=== PATIENT | female | born 1995 | race Caucasian/White ===

== ENCOUNTER 2020-07-10 13:07 | Inpatient (IN) | payer OTHER, SELFPAY ==
--- NOTE | ~2020-07-10 | US_ITS ---
EXAMINATION: US VENOUS ULTRASOUND WITH DOPPLER LOWER EXTREMITY, RIGHT CLINICAL INFORMATION: Right leg edema and pain COMPARISON: None TECHNIQUE: Ultrasound of the deep veins is performed from the hip to the calf with compression sonography and color and pulse Doppler assessment. Spectral analysis with color-flow imaging is performed. FINDINGS: There is normal venous compression and respiratory variation and augmented flow. The visualized common femoral vein, superficial femoral vein, profunda femoral vein, popliteal vein, and the trifurcation region shows no evidence of deep venous thrombosis. There is no significant popliteal fossa cyst. Some prominent right groin lymph nodes are seen the largest measuring 1.9 x 0.7 cm. Contralateral left common femoral vein appears normal. If the patient's symptoms persist, followup ultrasound in 5 days 7 days might be of value to exclude proximal propagation from a non-visualized calf vein. US/US venous duplex LE RT IMPRESSION: No DVT demonstrated in the right lower extremity.
--- NOTE | ~2020-07-10 | US_ITS ---
EXAMINATION: RIGHT KNEE. CLINICAL INFORMATION: Assess for fluid or abscess COMPARISON: None TECHNIQUE: Ultrasound of the right knee was performed FINDINGS: A joint effusion is present measuring 1.6 x 0.5 x 2.5 cm. No other abnormality is seen. US/US extremity nonvascular giron IMPRESSION: A knee joint effusion is present
--- NOTE | ~2020-07-10 | XR_ITS ---
EXAMINATION: XR KNEE, RIGHT CLINICAL INFORMATION: Right knee pain COMPARISON: None TECHNIQUE: Four views of the right knee. FINDINGS: Prepatellar soft tissue swelling/skin thickening is present. Bones and soft tissues are otherwise normal. No fracture or joint effusion. Alignment is anatomic. Joint spaces are well maintained. No abnormal soft tissue calcification. XR/XR knee RT 4V IMPRESSION: Swelling in prepatellar region. No bone or joint abnormality.
[2020-07-10 13:13] VITALS: BP 109/70; PULSE 90; O2SAT 98
[2020-07-10 13:29] VITALS: BP 116/63; PULSE 104; RESP 19; TEMP 39.2; O2SAT 98; BMI 19.4
[2020-07-10 15:49] LABS: MANUAL DIFF FLAG NO
[2020-07-10 15:57] LABS: Basophils Percent Auto 0.4 % (0-2); Eosinophils Absolute Auto 0.1 X10*3/uL (0.0-0.4); Eosinophils Percent Auto 0.7 % (0-4); Hemoglobin 13.1 g/dl (12.0-16.0); Imm Gran Abs Auto 0.02 X10*3/uL (0.00-0.03); Imm Gran Pct Auto 0.2 % (0.0-0.4); Lymphocytes Absolute Auto 1.2 X10*3/uL (1.2-4.9); Lymphocytes Percent Auto 12.4 % (20-40); Mean Corpuscular HGB Conc 32.8 g/dl (31.0-35.0); Mean Corpuscular Hemoglobin 29.8 pg (27.0-33.0); Mean Corpuscular Volume 90.9 fL (80-98); Mean Platelet Volume 9.8 fL (9.4-12.3); Monocytes Absolute Auto 0.5 X10*3/uL (0.1-1.2); Neutrophils Absolute Auto 7.8 X10*3/uL (2.0-8.3); Neutrophils Percent Auto 81.3 % (45-73); Platelet Count 157 X10*3/uL (160-400); Red Cell Distribution Width 13.8 % (11.0-16.0); White Blood Count 9.6 X10*3/uL (4.8-10.8)
[2020-07-10 16:17] LABS: Alanine Aminotransferase 207 U/L (0-31); Albumin Level 3.9 g/dL (3.5-5.0); Alkaline Phosphatase 84 U/L (39-117); Anion Gap 14 (12-20); Aspartate Amino Transferase 136 U/L (5-31); Bilirubin Total 0.7 mg/dL (0.0-1.0); Blood Urea Nitrogen 10 mg/dL (9-16); Calcium 8.6 mg/dL (8.4-10.2); Carbon Dioxide 26 mmol/L (22-29); Chloride 95 mmol/L (96-108); Creatinine Clr Calc Pharmacy 72.8; Estimated Glomerular Filt Rate > 60; Glucose Random 106 mg/dL (60-115); Potassium 3.9 mmol/L (3.3-5.1); Sodium 131 mmol/L (135-145)
[2020-07-10 17:29] VITALS: BP 131/74; PULSE 88; RESP 18; TEMP 37.9; O2SAT 97
--- NOTE | 2020-07-10 17:54 | ED.GENADULT ---
HPI - General Adult General Chief complaint: Skin/Abscess/Foreign Body Stated complaint: RIGHT KNEE PAIN,? INFECT, NO NEW INJURY Time Seen by Provider: 07/10/20 17:29 Source: patient Mode of arrival: ambulatory Limitations: no limitations History of Present Illness HPI narrative: 24 y/o female with history of daily IVDA (1 bundle per day, last use yesterday), history of infectious tenosynovitis w/ necrotic wounds on arms (went to OR w/ plastics & left [facility] in Dec 2019, did not complete abx) who presents to the ED with 2 days of severe non-traumatic right knee pain. She states her knee started to get red, hot and swollen about 2 days ago. She walked a mile on it last night and this morning she woke up and was unable to bend it at all. She has fever and chills at home. She is nauseated but has not vomited. No abdominal pain, chest pain, or SOB. MD complaint: right knee pain Onset (ago): day(s) (2) Location: right and lower extremity Radiation: non-radiation Severity: severe Severity scale (1-10): 10 Quality: stabbing and aching Pain Consistency: constant Relieving factors: immobilization and rest Exacerbating factors: movement Associated symptoms: malaise and nausea/vomiting Related Data Home Medications Medication Instructions Recorded Confirmed No Known Home Meds 07/10/20 07/10/20 Allergies Allergy/AdvReac Type Severity Reaction Status Date / Time No Known Allergies Allergy Verified 07/10/20 13:34 [No Known Allergies*] Review of Systems Review of Systems: Constitutional: + Fever, + Chills ENT/Mouth: No sore throat, No Rhinorrhea, No Swallowing Difficulty Eyes: No Eye Pain, No Swelling, No Redness Cardiovascular: No Chest Pain, No SOB, No Orthopnea, No Edema Respiratory: No Cough, No Sputum, No Wheezing, No dyspnea Gastrointestinal: + Nausea, No Vomiting, No Diarrhea, No abdominal Pain, No Hematochezia, No Melena Genitourinary: No Dysuria, No Urinary Frequency, No Hematuria Musculoskeletal: + joint pain, + Myalgias Skin: +Skin Lesions, No rash Neuro: No Weakness, No Numbness, No Dizziness, No Headache Psych: No Anxiety/Panic, + Depression, No SI Heme/Lymph: + Bruising, No Lymphadenopathy Endocrine: No Polyuria, No Polydipsia [facility] Past Medical History Attestation statement: The following information was validated with the patient. Medical History Infectious tenosynovitis IV drug user No known health problems Social History Social History Household Members: None Housing: Homeless Unable to assess alcohol history related to: Unknown Alcohol intake: never Smoking Status: Current every day smoker Tobacco Type: Cigarette Packs Per Day: 1 Cigarettes Per Day: 20.0 Smoked in Last 30 Days: Yes Use of substances other than those prescribed or required for medical reasons: Yes Substance Use Type: Crack/Cocaine, Heroin, IV Drugs and Marijuana Substance Use Frequency: Daily Last Used Substance: Days (ago) Currently Displaying Signs/Symptoms of Drug Intoxication Withdrawal: No Advance Directives: No Advance Directives Information Provided: Yes Do you have thoughts of harming others: None Do you have a plan to hurt others: No Plan Recently lost weight without trying: Unsure Nutrition Risks: No Nutritional Risk Patient : No : No Poor oral hygiene: No Physical Exam Vital Signs: Vital Signs: Last Vital Signs Temp 98.0 F 07/10/20 20:00 Pulse 70 07/10/20 20:00 Resp 18 07/10/20 20:00 BP 104/54 L 07/10/20 20:00 Pulse Ox 97 07/10/20 20:00 Body Mass Index 19.4 Appearance: Alert. Oriented X3. Appears to be in pain Eyes: Pupils equal, round and reactive to light. ENT: Pharynx normal. Neck: Normal inspection. Neck supple. CVS: Tachycardic, regular rhythm Pulses normal. No murmur appreaciated Respiratory: No respiratory distress. Breath sounds normal. Abdomen: Soft and nontender. +BS x4 Skin: Skin warm and dry. Normal skin color. Normal skin turgor. Multiple track foster on bilateral upper extremities, scabbing on LE Extremities: right knee with mild erythema, moderate warmth and significant tenderness. Unable to bend at all even passively due to pain. NV intact distally. No palpable effusion Neuro: Oriented X 3. No motor deficit. No sensory deficit. Course Course Course Narrative: 24 y/o female with history of active IVDA presenting with severe right knee pain with inability to bend along with fever, tachycardia. Concern for septic joint, bacteremia, and possible endocarditis. Anticipate admission, patient is agreeable. Basic labs done in the waiting room - on bedside assessment at 5:15pm there is suspicion for sepsis. IVF and broad spectrum abx ordered. Lactic and inflammatory markers ordered. Reevaluation(s) Reevaluation #1: No leukocytosis but CPR is 9.13. LFT's elevated without RUQ pain. Will check hepatitis panel. LE doppler showed no evidence of acute blood clot. Reevaluation #2: Spoke with Madison OROPEZA re: concern for septic joint, no other imaging recommended at this time. Ortho will evaluate the patient in the morning. Reevaluation #3: Spoke with Dr. Gray for admission - recommending joint U/S to assess for effusion. Order placed. Patient to be admitted. Consultations Consultation #1: Ortho - Madison Mckee Medical Decision Making Lab Data Result diagrams: 07/10/20 15:42 07/10/20 15:42 Labs: Lab Results 07/10/20 07/10/20 07/10/20 Range/Units 15:42 15:42 15:42 WBC 9.6 (4.8-10.8) X10*3/uL RBC 4.40 (4.20-5.50) X10*6/uL Hgb 13.1 (12.0-16.0) g/dl Hct 40.0 (37-47) % MCV 90.9 (80-98) fL MCH 29.8 (27.0-33.0) pg MCHC 32.8 (31.0-35.0) g/dl RDW 13.8 (11.0-16.0) % Plt Count 157 L (160-400) X10*3/uL MPV 9.8 (9.4-12.3) fL Immature Gran % (Auto) 0.2 (0.0-0.4) % Neut % (Auto) 81.3 H (45-73) % Lymph % (Auto) 12.4 L (20-40) % [place] % (Auto) 5.0 (2-11) % Eos % (Auto) 0.7 (0-4) % Baso % (Auto) 0.4 (0-2) % Lymph # (Auto) 1.2 (1.2-4.9) X10*3/uL [place] # (Auto) 0.5 (0.1-1.2) X10*3/uL Eos # (Auto) 0.1 (0.0-0.4) X10*3/uL Baso # (Auto) 0.0 (0.0-0.2) X10*3/uL Abs Immat Gran (auto) 0.02 (0.00-0.03) X10*3/uL Absolute Neuts (auto) 7.8 (2.0-8.3) X10*3/uL Absolute Nucleated RBC 0.000 (0.0-0.012) X10*3/uL Nucleated RBC % (auto) 0.0 (0.0-0.2) /100WBC ESR (0-20) MM/HR PT (10.8-13.0) SEC INR (0.9-1.1) APTT (24.1-38.0) SEC Sodium 131 L (135-145) mmol/L Potassium 3.9 (3.3-5.1) mmol/L Chloride 95 L (96-108) mmol/L Carbon Dioxide 26 (22-29) mmol/L Anion Gap 14 (12-20) BUN 10 (9-16) mg/dL Creatinine 0.99 (0.5-1.4) mg/dL Estim Creat Clear Calc 72.8 Estimated GFR > 60 Random Glucose 106 (60-115) mg/dL Lactic Acid 2.0 (0.5-2.0) mmol/L Calcium 8.6 (8.4-10.2) mg/dL Total Bilirubin 0.7 (0.0-1.0) mg/dL AST 136 H (5-31) U/L ALT 207 H (0-31) U/L Alkaline Phosphatase 84 (39-117) U/L C-Reactive Protein (< or = 0.50) mg/dL Total Protein 8.0 (6.5-8.0) g/dL Albumin 3.9 (3.5-5.0) g/dL COVID-19 (FUNMI) (Negative) COVID-19 Clin Com 07/10/20 07/10/20 07/10/20 Range/Units 15:42 19:06 19:06 WBC (4.8-10.8) X10*3/uL RBC (4.20-5.50) X10*6/uL Hgb (12.0-16.0) g/dl Hct (37-47) % MCV (80-98) fL MCH (27.0-33.0) pg MCHC (31.0-35.0) g/dl RDW (11.0-16.0) % Plt Count (160-400) X10*3/uL MPV (9.4-12.3) fL Immature Gran % (Auto) (0.0-0.4) % Neut % (Auto) (45-73) % Lymph % (Auto) (20-40) % Bourbon % (Auto) (2-11) % Eos % (Auto) (0-4) % Baso % (Auto) (0-2) % Lymph # (Auto) (1.2-4.9) X10*3/uL [place] # (Auto) (0.1-1.2) X10*3/uL Eos # (Auto) (0.0-0.4) X10*3/uL Baso # (Auto) (0.0-0.2) X10*3/uL Abs Immat Gran (auto) (0.00-0.03) X10*3/uL Absolute Neuts (auto) (2.0-8.3) X10*3/uL Absolute Nucleated RBC (0.0-0.012) X10*3/uL Nucleated RBC % (auto) (0.0-0.2) /100WBC ESR 27 H (0-20) MM/HR PT 14.4 H (10.8-13.0) SEC INR 1.2 H (0.9-1.1) APTT 33.4 (24.1-38.0) SEC Sodium (135-145) mmol/L Potassium (3.3-5.1) mmol/L Chloride (96-108) mmol/L Carbon Dioxide (22-29) mmol/L Anion Gap (12-20) BUN (9-16) mg/dL Creatinine (0.5-1.4) mg/dL Estim Creat Clear Calc Estimated GFR Random Glucose (60-115) mg/dL Lactic Acid (0.5-2.0) mmol/L Calcium (8.4-10.2) mg/dL Total Bilirubin (0.0-1.0) mg/dL AST (5-31) U/L ALT (0-31) U/L Alkaline Phosphatase (39-117) U/L C-Reactive Protein 9.13 H (< or = 0.50) mg/dL Total Protein (6.5-8.0) g/dL Albumin (3.5-5.0) g/dL COVID-19 (FUNMI) (Negative) COVID-19 Clin Com 07/10/20 07/10/20 Range/Units 19:06 19:06 WBC (4.8-10.8) X10*3/uL RBC (4.20-5.50) X10*6/uL Hgb (12.0-16.0) g/dl Hct (37-47) % MCV (80-98) fL MCH (27.0-33.0) pg MCHC (31.0-35.0) g/dl RDW (11.0-16.0) % Plt Count (160-400) X10*3/uL MPV (9.4-12.3) fL Immature Gran % (Auto) (0.0-0.4) % Neut % (Auto) (45-73) % Lymph % (Auto) (20-40) % Bourbon % (Auto) (2-11) % Eos % (Auto) (0-4) % Baso % (Auto) (0-2) % Lymph # (Auto) (1.2-4.9) X10*3/uL [place] # (Auto) (0.1-1.2) X10*3/uL Eos # (Auto) (0.0-0.4) X10*3/uL Baso # (Auto) (0.0-0.2) X10*3/uL Abs Immat Gran (auto) (0.00-0.03) X10*3/uL Absolute Neuts (auto) (2.0-8.3) X10*3/uL Absolute Nucleated RBC (0.0-0.012) X10*3/uL Nucleated RBC % (auto) (0.0-0.2) /100WBC ESR (0-20) MM/HR PT (10.8-13.0) SEC INR (0.9-1.1) APTT (24.1-38.0) SEC Sodium (135-145) mmol/L Potassium (3.3-5.1) mmol/L Chloride (96-108) mmol/L Carbon Dioxide (22-29) mmol/L Anion Gap (12-20) BUN (9-16) mg/dL Creatinine (0.5-1.4) mg/dL Estim Creat Clear Calc Estimated GFR Random Glucose (60-115) mg/dL Lactic Acid 3.0 H* (0.5-2.0) mmol/L Calcium (8.4-10.2) mg/dL Total Bilirubin (0.0-1.0) mg/dL AST (5-31) U/L ALT (0-31) U/L Alkaline Phosphatase (39-117) U/L C-Reactive Protein (< or = 0.50) mg/dL Total Protein (6.5-8.0) g/dL Albumin (3.5-5.0) g/dL COVID-19 (FUNMI) Negative (Negative) COVID-19 Clin Com See Note Discharge Plan Discharge Clinical Impression: Septic arthritis of knee, left Qualifiers: Septic arthritis organism: due to unspecified organism Qualified Code(s): M00.9 - Pyogenic arthritis, unspecified Patient Disposition: Admitted As Inpatient
[2020-07-10 18:10] LABS: C Reactive Protein 9.13 mg/dL (< or = 0.50)
[2020-07-10] MEDS: Piperacillin Sodium/Tazobactam 3.375 GM in 0.9 % Sodium Chloride 50 ML IV (18:45)
[2020-07-10] MEDS: Acetaminophen 325 MG TABLET 975 MG PO (18:45)
[2020-07-10] MEDS: vancomycin HCL 750 MG in 0.9 % Sodium Chloride 250 ML 265 MG IV (18:48)
[2020-07-10] MEDS: 0.9 % Sodium Chloride 1,000 ML 999 ML IVCONT ×2 (18:49→20:52)
[2020-07-10 19:27] LABS: INTERNATIONAL NORM RATIO 1.2 (0.9-1.1); Prothrombin Time 14.4 SEC (10.8-13.0)
[2020-07-10 19:29] LABS: Partial Thromboplastin Time 33.4 SEC (24.1-38.0)
[2020-07-10 19:48] LABS: COVID-19 Test Negative (Negative)
--- NOTE | 2020-07-10 19:48 | PM.IMHP ---
History of Present Illness Date of Service: 07/10/20 Chief Complaint: Right knee pain 24-year-old female with a past medical history of drug abuse uses heroin daily; history of tenosynovitis/necrotic wounds on the arms presented to the hospital with a chief complaint of right knee pain redness and swelling past 2 days. Mentions that has decreased mobility secondary to the pain. Complains of subjective fevers and chills. Denies any chest pain palpitations lightheadedness or dizziness. Denies any cough. Denies any GI or symptoms. Review of all other systems is negative except mentioned above ER course: For ER team patient right knee was warm, erythematous no significant swelling noticed compared to the left; x-ray showed low joint fluid but noticed superficial soft tissue swelling; consistent cellulitis. Discussed with orthopedics team of Dr. Nichols who suggested to give the patient NPO after midnight and no further imaging recommended. Patient was given vancomycin and Zosyn. Admitted for further management. [facility] Medical History Infectious tenosynovitis IV drug user No known health problems Social History Household Members: None Housing: Homeless Unable to assess alcohol history related to: Unknown Alcohol intake: never Smoking Status: Current every day smoker Tobacco Type: Cigarette Packs Per Day: 1 Cigarettes Per Day: 20.0 Smoked in Last 30 Days: Yes Use of substances other than those prescribed or required for medical reasons: Yes Substance Use Type: Crack/Cocaine, Heroin, IV Drugs and Marijuana Substance Use Frequency: Daily Last Used Substance: Days (ago) Currently Displaying Signs/Symptoms of Drug Intoxication Withdrawal: No Advance Directives: No Advance Directives Information Provided: Yes Do you have thoughts of harming others: None Do you have a plan to hurt others: No Plan Recently lost weight without trying: Unsure Nutrition Risks: No Nutritional Risk Patient : No : No Poor oral hygiene: No Meds Allergies Allergy/AdvReac Type Severity Reaction Status Date / Time No Known Allergies Allergy Verified 07/10/20 13:34 [No Known Allergies*] Active Medications: Current Medications Generic Name Dose Route Start Last Admin Trade Name Freq PRN Reason Stop Dose Admin Acetaminophen 650 mg 07/10/20 19:42 Acetaminophen 325 Mg Tablet PO Q6H PRN Pain, Mild (Pain Scale 1-3) Clonidine HCl 0.1 mg 07/10/20 19:42 Clonidine Hcl 0.1 Mg Tablet PO BID PRN anxiety/restlessness Protocol Docusate Sodium 100 mg 07/10/20 21:00 Docusate Sodium 100 Mg Capsule PO BID COUNT INCLUDES THE [facility] Sodium Chloride 1,000 mls @ 100 mls/hr 07/10/20 19:45 Ns IVCONT .Q10H PHIL Ondansetron HCl 4 mg 07/10/20 19:42 Ondansetron Hcl 4 Mg/2 Ml Vial IVPUSH Q8H PRN Nausea and Vomiting Oxycodone HCl 5 mg 07/10/20 19:46 Oxycodone Hcl Immed Release 5 Mg Tablet PO Q4H PRN Pain, Moderate (Pain Scale 4-6 Senna 17.2 mg 07/10/20 19:42 Sennosides 8.6 Mg Tablet PO BEDTIME PRN Constipation Sodium Chloride 3 ml 07/11/20 00:00 0.9 % Sodium Chloride Flush 3 Ml Syringe IVFLUSH QSHIFT COUNT INCLUDES THE [facility] Home Medications Medication Instructions Recorded Confirmed Last Taken Type No Known Home Meds 07/10/20 07/10/20 Unknown History Physical Exam Vital Signs and Narrative: Vital Signs: Last Vital Signs Temp 100.3 F 07/10/20 17:29 Pulse 88 07/10/20 17:29 Resp 18 07/10/20 17:29 BP 131/74 07/10/20 17:29 Pulse Ox 97 07/10/20 17:29 Body Mass Index 19.4 Gen: Appears be in no acute distress HEENT: NCAT, Moist mucosa. Pulmonary: Vesicular breath sounds, fair air entry CVS: Normal S1-S2 Abdomen: BS+, Soft, Nontender Extremities: Warm well perfused; right knee wound swollen and erythematous; range of motion limited secondary to pain. Neuro: Alert and awake. Results Labs CBC and Chem 7: 07/10/20 15:42 07/10/20 15:42 Labs: Laboratory Results - last 24 hr 07/10/20 07/10/20 07/10/20 15:42 15:42 15:42 MCV 90.9 MCH 29.8 MCHC 32.8 RDW 13.8 Plt Count 157 L MPV 9.8 Immature Gran % (Auto) 0.2 Neut % (Auto) 81.3 H Lymph % (Auto) 12.4 L [place] % (Auto) 5.0 Eos % (Auto) 0.7 Baso % (Auto) 0.4 Lymph # (Auto) 1.2 [place] # (Auto) 0.5 Eos # (Auto) 0.1 Baso # (Auto) 0.0 Abs Immat Gran (auto) 0.02 Absolute Neuts (auto) 7.8 Absolute Nucleated RBC 0.000 Nucleated RBC % (auto) 0.0 PT INR APTT Anion Gap 14 Estim Creat Clear Calc 72.8 Estimated GFR > 60 Random Glucose 106 Lactic Acid 2.0 Calcium 8.6 Total Bilirubin 0.7 AST 136 H ALT 207 H Alkaline Phosphatase 84 C-Reactive Protein Total Protein 8.0 Albumin 3.9 COVID-19 (FUNMI) COVID-19 Clin Com 07/10/20 07/10/20 07/10/20 15:42 19:06 19:06 MCV MCH MCHC RDW Plt Count MPV Immature Gran % (Auto) Neut % (Auto) Lymph % (Auto) [place] % (Auto) Eos % (Auto) Baso % (Auto) Lymph # (Auto) [place] # (Auto) Eos # (Auto) Baso # (Auto) Abs Immat Gran (auto) Absolute Neuts (auto) Absolute Nucleated RBC Nucleated RBC % (auto) PT 14.4 H INR 1.2 H APTT 33.4 Anion Gap Estim Creat Clear Calc Estimated GFR Random Glucose Lactic Acid Calcium Total Bilirubin AST ALT Alkaline Phosphatase C-Reactive Protein 9.13 H Total Protein Albumin COVID-19 (FUNMI) Negative COVID-19 Clin Com See Note Imaging Radiologist's Impressions: Impressions Venous Duplex 07/10/20 17:54 IMPRESSION: No DVT demonstrated in the right lower extremity. Knee X-Ray 07/10/20 18:21 IMPRESSION: Swelling in prepatellar region. No bone or joint abnormality. Assessment and Plan (1) Cellulitis: Status: Acute 24-year-old female with a past medical history of IV drug abuse presented to the hospital with a chief complaint of right knee pain redness and swelling; admitted for further management. Right knee cellulitis; x-ray showed soft tissue swelling.. Orthopedics was notified who recommended to keep the patient NPO. Patient had fevers; blood cultures have been sent. Continue vancomycin and Zosyn Will also obtain echocardiogram DVT study showed no acute findings Will also consult Infectious Disease Oxycodone p.r.n. for pain control Opiate dependence: Patient uses heroin daily. Monitor on cause protocol. Addiction Medicine Consult. Clonidine p.r.n.; Zofran p.r.n. DVT prophylaxis: Lovenox Code status: Full code
[2020-07-10 19:57] VITALS: BP 122/69; PULSE 90; RESP 16; O2SAT 98
[2020-07-10 19:58] VITALS: TEMP 36.9
[2020-07-10 20:00] VITALS: BP 104/54; PULSE 70; RESP 18; TEMP 36.7; O2SAT 97
[2020-07-10] MEDS: 0.9 % Sodium Chloride 1,000 ML 100 ML IVCONT ×2 (20:00→23:29)
[2020-07-10 20:12] LABS: Erythrocyte Sedimentation Rate 27 MM/HR (0-20)
[2020-07-10] MEDS: Enoxaparin Sodium 40 MG/0.4 ML SYRINGE SUBCUT (20:52)
[2020-07-10] MEDS: Docusate Sodium 100 MG CAPSULE PO (20:53)
[2020-07-10] MEDS: cloNIDine HCL 0.1 MG TABLET PO (21:11)
[2020-07-10] MEDS: oxyCODONE HCl Immed Release 5 MG TABLET PO (21:11)
[2020-07-10 21:16] LABS: Reflex Lactate? Lactic Acid Added
--- NOTE | 2020-07-10 21:54 | PC.NURSE ---
report given to rn, pt ready for transport to floor.
[2020-07-10 22:45] VITALS: BMI 20.5
[2020-07-10] MEDS: 0.9 % Sodium Chloride Flush 3 ML SYRINGE IVFLUSH (23:35)
[2020-07-11] VITALS (8 sets, daily range): BP systolic 97–134; BP diastolic 52–75; PULSE 61–109; RESP 16–21; TEMP 36.1–39.3; O2SAT 96–99
[2020-07-11 00:25] LABS: ~Lactic Acid-LAB USE ONLY 2.5 mmol/L (0.5-2.0)
--- NOTE | 2020-07-11 00:45 | PC.NURSE ---
Addendum entered by Margo Zelaya RN 07/11/20 03:40: Lactic Acid Fup @4hr came back at 1.3, trending down. Original Note: Lactic acid Fup came back with a critical of 2.5. Dr. Gray notified, no new orders, only to continue IV fluids.
[2020-07-11 01:33] LABS: Reflex Lactate? 2 Y
[2020-07-11 02:13] LABS: ~Lactic Acid-LAB USE ONLY 1.3 mmol/L (0.5-2.0)
--- NOTE | 2020-07-11 03:12 | PM.EVENT ---
Event Note Date of Service: 07/11/20 Event Note: Bacteremia: Blood Cx grew GPC; pending sensitivities; ID consult; pt on IV Vanc/Zosyn.
[2020-07-11] MEDS: Piperacillin Sodium/Tazobactam 3.375 GM in 0.9 % Sodium Chloride 50 ML IV ×4 (03:31→21:28)
[2020-07-11] MEDS: vancomycin HCL 750 MG in 0.9 % Sodium Chloride 250 ML 265 MG IV ×2 (06:15→19:19)
[2020-07-11 06:41] LABS: MANUAL DIFF FLAG NO
[2020-07-11 06:57] LABS: Basophils Percent Auto 0.3 % (0-2); Eosinophils Percent Auto 0.2 % (0-4); Hematocrit 34.8 % (37-47); Hemoglobin 11.4 g/dl (12.0-16.0); Imm Gran Abs Auto 0.05 X10*3/uL (0.00-0.03); Imm Gran Pct Auto 0.5 % (0.0-0.4); Lymphocytes Absolute Auto 1.1 X10*3/uL (1.2-4.9); Lymphocytes Percent Auto 12.1 % (20-40); Mean Corpuscular HGB Conc 32.8 g/dl (31.0-35.0); Mean Corpuscular Hemoglobin 29.4 pg (27.0-33.0); Mean Corpuscular Volume 89.7 fL (80-98); Mean Platelet Volume 9.9 fL (9.4-12.3); Monocytes Absolute Auto 0.7 X10*3/uL (0.1-1.2); Monocytes Percent Auto 7.1 % (2-11); Neutrophils Absolute Auto 7.3 X10*3/uL (2.0-8.3); Neutrophils Percent Auto 79.8 % (45-73); Platelet Count 124 X10*3/uL (160-400); Red Blood Count 3.88 X10*6/uL (4.20-5.50); Red Cell Distribution Width 13.8 % (11.0-16.0); White Blood Count 9.1 X10*3/uL (4.8-10.8)
[2020-07-11 07:04] LABS: INTERNATIONAL NORM RATIO 1.3 (0.9-1.1)
--- NOTE | 2020-07-11 07:10 | CA_ITS ---
Transthoracic Echocardiogram Patient (Last, First, Middle): Eva Washburn A Gender: Female Date of : 1995 Age: 24 Procedure Date: 07/11/2020 Procedure Type: Transthoracic Echocardiogram Location: [facility] Height: 165.1 cm Weight: 55.79 kg BSA: 1.61 m2 Heart Rate: bpm BP: 99 / 56 mmHg Solar Field Service Technician: IRWIN [place] MD: Silas Gray MD Whiskey Regauger: Elkin Rouse MD Symptoms: fever; hx IVDA Study Quality: Fair ECG Rhythm: Sinus Conclusions: - 1. Normal LV systolic and diastolic function 2. Tricuspid valve vegetation 3. Normal cardiac valvular Doppler 4. No pericardial effusion Findings Left Ventricle Normal left ventricular size, thickness, and systolic function. The visually estimated ejection fraction is between 60-65%. Diastolic function is normal for age. Right Ventricle Normal right ventricular cavity size and systolic function. Atria Both atria are normal in size. There is no evidence of interatrial shunt. Aortic Valve Normal aortic valve structure and function. There is no aortic valve stenosis. There is no aortic valve regurgitation. Mitral Valve Normal mitral valve structure and function. There is trace mitral valve regurgitation. There is no mitral valve stenosis. Pulmonic Valve The pulmonic valve was not well visualized. Tricuspid Valve There is moderate septal tricuspid leaflet thickening. There is a large mobile mass on the septal tricuspid valve leaflet. The mass is consistent with possible vegetation. Normal right atrial pressure. There is no evidence of pulmonary hypertension. the mass seems to be attached to the sub chordal structures and in correct clinical setting could represent a vegetation related to endocarditis Great Vessels All visible segments of the aorta are normal in size. The pulmonary artery was not well visualized. Venous The inferior vena cava is normal in size. Inferior vena cava flow is normal. Pericardium/Pleural There is no evidence of pericardial effusion. Prior Study Comparison No prior study available for comparison. Measurements 2D Linear Measurements IVSd: 0.78 0.6-0.9/0.6-1.0 cm LVIDd: 4.78 3.9-5.3/4.2-5.9 cm LVIDd Index: 2.97 2.4-3.2/2.2-3.1 cm/m2 LVIDs: 3.12 2.0-3.6 cm LVPWd: 0.76 0.7-1.1 cm Ao Root: 3.40 2.1-3.5 cm LA Diam: 3.20 2.7-3.8/3.0-4.0 cm LAIDs Index: 1.99 1.5-2.3 cm/m2 LV Mass: 148.82 67-162/88-224 g LV Mass Index: 92.44 43-95/49-115 g/m2 LVOT Diam: 2.00 3.0+(-)1.3 cm Mitral Valve MV Pk E: 0.93 MV PK A: 0.39 MV Decel Time: 241.00 E/A: 2.40 E'Lateral: 13.60 E'Medial: 12.70 E/E' Med: 7.30 E/E' Lat: 6.80 PHT: 70.00 MVA PHT: 3.14 Decel Forrest: 3.87 Aortic Valve AoV Pk Chacorta: 1.19 AoV Mn Chacorta: 0.83 AoV VTI: 0.28 AoV Pk Grad: 6.00 Aov Mn Grad: 3.00 ROD Cont.VTI: 1.99 LVOT LVOT Pk Chacorta: 0.81 LVOT Mn Chacorta: 0.51 LVOT VTI: 0.18 LVOT Pk Grad: 3.00 LVOT Mn Grad: 1.00 LVOT Diam: 2.00 LVOT Area: 3.14 Diastolic Function MV Pk E: 0.93 MV Pk A: 0.39 E/A: 2.40 E'Medial: 12.70 E/E' Med: 7.30 E' Laterial: 13.60 E/E' Lat: 6.80 Tricuspid Valve TR Pk Chacorta: 2.57 TR Pk Grad: 26.00 RA Press: 3.00 RVSP: 29.00 Great Vessels Aorta Ao Root-2D: 3.40 2.0-3.7 cm Ao Asc: 2.70 2.1-3.4 cm Updated in Other Vendor System with Status of Final Elkin Rouse MD electronically signed on 07/11/2020 4:15:39 PM with status of Final
[2020-07-11 07:47] LABS: Lactic Acid 0.9 mmol/L (0.5-2.0)
[2020-07-11 08:01] LABS: Anion Gap 10 (12-20); Blood Urea Nitrogen 8 mg/dL (9-16); Calcium 7.4 mg/dL (8.4-10.2); Carbon Dioxide 23 mmol/L (22-29); Chloride 107 mmol/L (96-108); Creatinine Clr Calc Pharmacy 113.4; Estimated Glomerular Filt Rate > 60; Glucose Random 102 mg/dL (60-115); Sodium 137 mmol/L (135-145)
--- NOTE | 2020-07-11 09:10 | MHC.CM.PN ---
CM met with Patient at bedside. Patient is homeless and has no PCP. Patient has been living on the streets and denies having any children.Patient has a diagnosis of IVDA and would benefit from A CARE TEAM CONSULT. DC Plan at this time is TBD. CM will follow.
--- NOTE | 2020-07-11 10:30 | HO.PM.IMPN ---
Subjective Subjective Date of Service: 07/11/20 Interval History: pain Cardiovascular Cardiovascular: Reports no additional cardiovascular complaints Genitourinary Genitourinary: Reports no additional female genitourinary complaints Physical Exam Vital Signs: Vital Signs: Last Vital Signs Temp 96.9 F 07/11/20 08:00 Pulse 65 07/11/20 08:00 Resp 21 H 07/11/20 08:00 BP 104/57 L 07/11/20 08:00 Pulse Ox 96 07/11/20 08:00 Body Mass Index 20.5 General: AO X 3, no acute distress Resp: CTA bilateral CVS: S1,S2,RRR GI: soft, non tender, non distended Neuro: motor grossly intact Psych: appropriate affect ext right knee swollen, erythema Objective Data Current Medications Generic Name Dose Route Start Last Admin Trade Name Freq PRN Reason Stop Dose Admin Acetaminophen 650 mg 07/10/20 19:42 Acetaminophen 325 Mg Tablet PO Q6H PRN Pain, Mild (Pain Scale 1-3) Clonidine HCl 0.1 mg 07/10/20 19:42 07/10/20 21:11 Clonidine Hcl 0.1 Mg Tablet PO 0.1 mg BID PRN Administration anxiety/restlessness Protocol Docusate Sodium 100 mg 07/10/20 21:00 07/11/20 08:28 Docusate Sodium 100 Mg Capsule PO Not Given BID PHIL Enoxaparin Sodium 40 mg 07/10/20 22:00 07/10/20 20:52 Enoxaparin Sodium 40 Mg/0.4 Ml Syringe SUBCUT 40 mg Q24H PHIL Administration Piperacillin Sod/Tazobactam 50 mls @ 100 mls/hr 07/11/20 04:00 07/11/20 04:13 Sod 3.375 gm/ Sodium Chloride IV Infused Q6H PHIL Infusion Vancomycin HCl 750 mg/ Sodium 265 mls @ 265 mls/hr 07/11/20 19:00 Chloride IV Q12H PHIL Ondansetron HCl 4 mg 07/10/20 19:42 Ondansetron Hcl 4 Mg/2 Ml Vial IVPUSH Q8H PRN Nausea and Vomiting Oxycodone HCl 5 mg 07/10/20 19:46 07/10/20 21:11 Oxycodone Hcl Immed Release 5 Mg Tablet PO 5 mg Q4H PRN Administration Pain, Moderate (Pain Scale 4-6 Pharmacy Consult 1 each 07/11/20 03:08 Consult Rx Vancomycin Dosing MISCELLANE DAILY PRN Consult order Senna 17.2 mg 07/10/20 19:42 Sennosides 8.6 Mg Tablet PO BEDTIME PRN Constipation Sodium Chloride 3 ml 07/11/20 00:00 07/11/20 08:27 0.9 % Sodium Chloride Flush 3 Ml Syringe IVFLUSH Not Given QSHIFT PHIL Labs CBC & Chem 7: 07/11/20 05:55 07/11/20 05:55 Microbiology Microbiology Results: Microbiology 07/10/20 15:43 Blood - Venous Blood Culture - Preliminary 07/10/20 19:06 Blood - Venous Blood Culture - Preliminary Assessment and Plan (1) Septic arthritis of knee, left: Status: Acute (2) Cellulitis: Status: Acute (3) IV drug user: Status: Acute Assessment and Plan: 24F presented with right knee pain and swelling severe sepsis poa due to bacteremia in setting of IVDA and likely septic arthritis vanc, zosyn follow up cultures echo, ortho opioid dependence with withdrawl addication team following
--- NOTE | 2020-07-11 11:10 | MHC.CLN ---
RE: CONSULT PT IS CURRENTLY NPO PT WITH HX POOR PO R/T IVDA IF DIET ADVANCES, RECOMMEND ADDING ENSURE TID TO INCREASE KCALS MONITOR PO INTAKE
--- NOTE | 2020-07-11 11:19 | MHC.RECOVRN ---
24 yr old female presented to [facility] ED via EMS on 07/10 due to RIGHT KNEE PAIN/SWELLING. PT STATES SHE IS UNABLE TO WALK FOR 2 DAYS. LAST USED HEROIN YESTERDAY. TEARFUL per software intern. Upon evaluation, pt was admitted for treatment of septic arthritis of the knee, left, and cellulitis.? T/w met with pt in 453 after Addiction Medicine consult was placed. Pt unable to engage in conversation due to pain. Pt was able to report heroin use, 1.5 bundles daily, IV, last use 07/09. Pt reports hx of methadone and would like to utilize that if it is appropriate while inpatient. Case discussed with Belinda Mayfield APRN. Hospitalist was contacted to order pain medication. T/w will continue to follow and meet with pt once comfortable.?
--- NOTE | 2020-07-11 11:32 | PM.EVENT ---
Event Note Date of Service: 07/11/20 Event Note: 24-year-old female with atraumatic right knee pain times 3-4 days. She does have a history of IV drug use most recently from yesterday. She states that she has difficulty with bending and straightening the knee. On exam the skin is intact. There is no significant erythema or joint effusion. There is very minimal swelling along the prepatellar bursa. She can fully extend the knee with pain. Flexion to about 85 degrees. I discussed the case with Dr. Nichols. She does not have a white count. ESR elevated 27 lactic acid 3.0 CRP 9.13. At this time we will continue IV antibiotics and monitor. No surgical intervention at this time.
[2020-07-11] MEDS: oxyCODONE HCl Immed Release 5 MG TABLET PO (12:35)
[2020-07-11] MEDS: HYDROmorphone HCl 1 MG/ML SYRINGE IVPUSH (15:49)
[2020-07-11] MEDS: 0.9 % Sodium Chloride Flush 3 ML SYRINGE IVFLUSH (15:50)
--- NOTE | 2020-07-11 16:29 | MHC.RECOVRN ---
T/w met with pt to f/u after receiving 20 mg of methadone. Pt reports good effect but has 8/10 pain in leg. Pt currently with US. Will continue to follow.
--- NOTE | 2020-07-11 16:47 | PM.EVENT ---
Event Note Date of Service: 07/11/20 Event Note: Addiction note: Patient is a 24 year old female with OUD and cocaine use disorder Currently medically admitted with cellulitis and septic arthririts of of the knee Currently using heroin and cocaine IV QD Previously on methadone about a month ago, reports dose at that time was 50mg Tearful, crying, hungry. Reporting pain and anxiety related to withdrawal Plan: -20mg methadone QD -Full addiction note to follow
[2020-07-11] MEDS: Docusate Sodium 100 MG CAPSULE PO (19:18)
[2020-07-11] MEDS: Acetaminophen 325 MG TABLET 650 MG PO (19:18)
[2020-07-11] MEDS: Enoxaparin Sodium 40 MG/0.4 ML SYRINGE SUBCUT (21:28)
[2020-07-12] VITALS (7 sets, daily range): BP systolic 107–122; BP diastolic 59–76; PULSE 57–82; RESP 18–21; TEMP 36.6–37.8; O2SAT 95–98
[2020-07-12] MEDS: Piperacillin Sodium/Tazobactam 3.375 GM in 0.9 % Sodium Chloride 50 ML IV ×4 (03:57→22:59)
[2020-07-12] MEDS: Acetaminophen 325 MG TABLET 650 MG PO (04:20)
[2020-07-12 06:25] LABS: MANUAL DIFF FLAG NO
[2020-07-12 06:39] LABS: Basophils Percent Auto 0.4 % (0-2); Eosinophils Absolute Auto 0.1 X10*3/uL (0.0-0.4); Eosinophils Percent Auto 1.6 % (0-4); Hematocrit 32.4 % (37-47); Hemoglobin 10.9 g/dl (12.0-16.0); Imm Gran Abs Auto 0.04 X10*3/uL (0.00-0.03); Imm Gran Pct Auto 0.5 % (0.0-0.4); Lymphocytes Absolute Auto 1.3 X10*3/uL (1.2-4.9); Lymphocytes Percent Auto 16.2 % (20-40); Mean Corpuscular HGB Conc 33.6 g/dl (31.0-35.0); Mean Corpuscular Hemoglobin 29.6 pg (27.0-33.0); Monocytes Absolute Auto 0.5 X10*3/uL (0.1-1.2); Neutrophils Percent Auto 75.3 % (45-73); Platelet Count 125 X10*3/uL (160-400); Red Blood Count 3.68 X10*6/uL (4.20-5.50); Red Cell Distribution Width 13.5 % (11.0-16.0)
[2020-07-12 07:35] LABS: Alanine Aminotransferase 106 U/L (0-31); Albumin Level 2.7 g/dL (3.5-5.0); Alkaline Phosphatase 66 U/L (39-117); Anion Gap 8 (12-20); Aspartate Amino Transferase 64 U/L (5-31); Bilirubin Direct 0.4 mg/dL (0.0-0.5); Bilirubin Total 0.6 mg/dL (0.0-1.0); Blood Urea Nitrogen 10 mg/dL (9-16); Calcium 7.5 mg/dL (8.4-10.2); Carbon Dioxide 22 mmol/L (22-29); Chloride 108 mmol/L (96-108); Creatinine Clr Calc Pharmacy 118.7; Estimated Glomerular Filt Rate > 60; Glucose Fasting 100 mg/dL (60-99); Magnesium 1.8 mg/dL (1.6-2.6); Potassium 3.2 mmol/L (3.3-5.1); Sodium 135 mmol/L (135-145); Total Protein 5.6 g/dL (6.5-8.0)
[2020-07-12 07:44] LABS: Vancomycin Trough < 3.0 mcg/mL (10.0-20.0)
[2020-07-12 08:18] LABS: HBS Num1 24.99 mIU/mL (0-7.99); HBc Num1 0.71 S/CO (0.00-0.79); HBsAGNum1 0.21 S/CO (0.00-0.99); Hepatitis A Antibody IgM 0.35 Index (0-0.79); Hepatitis B Core Antibody Nonreactive (Nonreactive); Hepatitis B Surface Antigen Negative (Negative); ~HepC Num1 14.31 S/CO (0.00-0.79); ~Hepatitis A Antibody IgM Nonreactive (Nonreactive); ~Hepatitis B Surface Antibody REACTIVE (Nonreactive); ~Hepatitis C Antibody Reactive (Nonreactive)
[2020-07-12] MEDS: oxyCODONE HCl Immed Release 5 MG TABLET PO ×2 (08:35→16:28)
[2020-07-12] MEDS: vancomycin HCL 1,500 MG in 0.9 % Sodium Chloride 500 ML 333.33 MG IV ×2 (08:35→20:49)
--- NOTE | 2020-07-12 09:34 | P.EN_ITS ---
Event Note Date of Service: 07/12/20 Event Note: Right knee normal to inspection, no redness or swelling. Full flex ion and extension. Retropatellar tenderness present No further treatment for knee pain --PT for ROM and quad strength.
--- NOTE | 2020-07-12 09:36 | PM.CNOR ---
History of Present Illness HPI Consult date: 07/11/20 Chief complaint: Right knee cellulitus Narrative: This is a 24-year-old female who was admitted to the hospital service for bacteremia status post IV drug use. Orthopedics was consulted for atraumatic right knee pain times 3-4 days. She states she has difficulty with bending and straightening the knee. Denies injury. Review of Systems Review of Systems: Yes all other systems are reviewed and are negative PMFSH Past Medical History Medical History Infectious tenosynovitis IV drug user No known health problems Social History Social History Household Members: None Housing: Homeless Unable to assess alcohol history related to: Unknown Alcohol intake: never Smoking Status: Current every day smoker Tobacco Type: Cigarette Packs Per Day: 1 Cigarettes Per Day: 20.0 Substance Use Type: Crack/Cocaine, Heroin, IV Drugs and Marijuana service: No Current occupational status: unemployed Meds Allergies Allergy/AdvReac Type Severity Reaction Status Date / Time No Known Allergies Allergy Verified 07/10/20 13:34 [No Known Allergies*] Active Medications: Current Medications Generic Name Dose Route Start Last Admin Trade Name Freq PRN Reason Stop Dose Admin Acetaminophen 650 mg 07/10/20 19:42 07/12/20 04:20 Acetaminophen 325 Mg Tablet PO 650 mg Q6H PRN Administration Pain, Mild (Pain Scale 1-3) Clonidine HCl 0.1 mg 07/10/20 19:42 07/10/20 21:11 Clonidine Hcl 0.1 Mg Tablet PO 0.1 mg BID PRN Administration anxiety/restlessness Protocol Docusate Sodium 100 mg 07/10/20 21:00 07/12/20 08:36 Docusate Sodium 100 Mg Capsule PO Not Given BID PHIL Enoxaparin Sodium 40 mg 07/10/20 22:00 07/11/20 21:28 Enoxaparin Sodium 40 Mg/0.4 Ml Syringe SUBCUT 40 mg Q24H PHIL Administration Hydromorphone HCl 1 mg 07/11/20 10:44 07/11/20 15:49 Hydromorphone Hcl 1 Mg/Ml Syringe IVPUSH 1 mg Q4H PRN Administration pain Piperacillin Sod/Tazobactam 50 mls @ 100 mls/hr 07/11/20 04:00 07/12/20 04:33 Sod 3.375 gm/ Sodium Chloride IV Infused Q6H PHIL Infusion Vancomycin HCl 1,500 mg/ 500 mls @ 333.333 mls/hr 07/12/20 09:00 07/12/20 08:35 Sodium Chloride IV 333.33 mls/hr Q12H PHIL Administration Magnesium Oxide 400 mg 07/12/20 10:00 Magnesium Oxide 400 Mg Tablet PO 07/12/20 10:01 ONCE ONE Methadone HCl 20 mg 07/12/20 09:00 07/12/20 08:35 Methadone Hcl 1 Mg/0.1 Ml Oral.Conc PO 20 mg DAILY PHIL Administration Ondansetron HCl 4 mg 07/10/20 19:42 Ondansetron Hcl 4 Mg/2 Ml Vial IVPUSH Q8H PRN Nausea and Vomiting Oxycodone HCl 5 mg 07/10/20 19:46 07/12/20 08:35 Oxycodone Hcl Immed Release 5 Mg Tablet PO 5 mg Q4H PRN Administration Pain, Moderate (Pain Scale 4-6 Pharmacy Consult 1 each 07/11/20 03:08 Consult Rx Vancomycin Dosing MISCELLANE DAILY PRN Consult order Potassium Chloride 40 meq 07/12/20 10:00 Potassium Chloride Er 20 Meq Tab.Er.Prt PO 07/12/20 10:01 ONCE ONE Senna 17.2 mg 07/10/20 19:42 Sennosides 8.6 Mg Tablet PO BEDTIME PRN Constipation Sodium Chloride 3 ml 07/11/20 00:00 07/12/20 08:29 0.9 % Sodium Chloride Flush 3 Ml Syringe IVFLUSH Not Given QSHIFT [facility] Home Medications Medication Instructions Recorded Confirmed Last Taken Type No Known Home Meds 07/10/20 07/10/20 Unknown History Physical Exam Vital Signs: Vital Signs: Last Vital Signs Temp 97.8 F 07/12/20 08:00 Pulse 72 07/12/20 08:00 Resp 21 H 07/12/20 08:00 BP 109/59 L 07/12/20 08:00 Pulse Ox 98 07/12/20 08:00 Body Mass Index 20.5 Const: General: cooperative, healthy appearing, comfortable and no acute distress Extrem: Other: skin is intact. There is no significant erythema or joint effusion. There is very minimal swelling along the prepatellar bursa. She can fully extend the knee with pain. Flexion to about 85 degrees. X-rays of the right knee are negative for acute fractures or dislocations. No joint effusion. Possible prepatellar bursitis. Results Labs Result Diagrams: 07/12/20 05:55 07/13/20 04:15 Labs: Abnormal lab results 07/10/20 07/12/20 07/12/20 Range/Units 15:42 05:55 05:55 RBC 3.68 L (4.20-5.50) X10*6/uL Hgb 10.9 L (12.0-16.0) g/dl Hct 32.4 L (37-47) % Plt Count 125 L (160-400) X10*3/uL Immature Gran % (Auto) 0.5 H (0.0-0.4) % Neut % (Auto) 75.3 H (45-73) % Lymph % (Auto) 16.2 L (20-40) % Abs Immat Gran (auto) 0.04 H (0.00-0.03) X10*3/uL Potassium (3.3-5.1) mmol/L Anion Gap (12-20) Fasting Glucose (60-99) mg/dL Calcium (8.4-10.2) mg/dL AST (5-31) U/L ALT (0-31) U/L Total Protein (6.5-8.0) g/dL Albumin (3.5-5.0) g/dL Vancomycin Trough < 3.0 L (10.0-20.0) mcg/mL Hepatitis C Ab (EIA) Reactive H (Nonreactive) 07/12/20 Range/Units 05:55 RBC (4.20-5.50) X10*6/uL Hgb (12.0-16.0) g/dl Hct (37-47) % Plt Count (160-400) X10*3/uL Immature Gran % (Auto) (0.0-0.4) % Neut % (Auto) (45-73) % Lymph % (Auto) (20-40) % Abs Immat Gran (auto) (0.00-0.03) X10*3/uL Potassium 3.2 L (3.3-5.1) mmol/L Anion Gap 8 L (12-20) Fasting Glucose 100 H (60-99) mg/dL Calcium 7.5 L (8.4-10.2) mg/dL AST 64 H (5-31) U/L ALT 106 H (0-31) U/L Total Protein 5.6 L D (6.5-8.0) g/dL Albumin 2.7 L D (3.5-5.0) g/dL Vancomycin Trough (10.0-20.0) mcg/mL Hepatitis C Ab (EIA) (Nonreactive) H & H 07/10/20 07/11/20 07/12/20 Range/Units 15:42 05:55 05:55 Hgb 13.1 11.4 L 10.9 L (12.0-16.0) g/dl Hct 40.0 34.8 L 32.4 L (37-47) % Coagulation 07/10/20 07/11/20 Range/Units 19:06 05:55 INR 1.2 H 1.3 H (0.9-1.1) All other labs normal. Assessment and Plan (1) Prepatellar bursitis, right knee: Status: Acute I discussed the case with Dr. Nichols. She does not have a white count. ESR elevated 27 lactic acid 3.0 CRP 9.13. At this time we will continue IV antibiotics and monitor. No surgical intervention at this time.
--- NOTE | 2020-07-12 09:40 | HO.PM.IMPN ---
Subjective Subjective Date of Service: 07/12/20 Interval History: still with pain but improved today Cardiovascular Cardiovascular: Reports no additional cardiovascular complaints Gastrointestinal Gastrointestinal: Reports no additional gastrointestinal complaints Physical Exam Vital Signs: Vital Signs: Last Vital Signs Temp 97.8 F 07/12/20 08:00 Pulse 72 07/12/20 08:00 Resp 21 H 07/12/20 08:00 BP 109/59 L 07/12/20 08:00 Pulse Ox 98 07/12/20 08:00 Body Mass Index 20.5 General: AO X 3, no acute distress Resp: CTA bilateral CVS: S1,S2,RRR GI: soft, non tender, non distended Neuro: motor grossly intact Psych: appropriate affect ext right knee swollen, erythema Objective Data Current Medications Generic Name Dose Route Start Last Admin Trade Name Freq PRN Reason Stop Dose Admin Acetaminophen 650 mg 07/10/20 19:42 07/12/20 04:20 Acetaminophen 325 Mg Tablet PO 650 mg Q6H PRN Administration Pain, Mild (Pain Scale 1-3) Clonidine HCl 0.1 mg 07/10/20 19:42 07/10/20 21:11 Clonidine Hcl 0.1 Mg Tablet PO 0.1 mg BID PRN Administration anxiety/restlessness Protocol Docusate Sodium 100 mg 07/10/20 21:00 07/12/20 08:36 Docusate Sodium 100 Mg Capsule PO Not Given BID PHIL Enoxaparin Sodium 40 mg 07/10/20 22:00 07/11/20 21:28 Enoxaparin Sodium 40 Mg/0.4 Ml Syringe SUBCUT 40 mg Q24H PHIL Administration Hydromorphone HCl 1 mg 07/11/20 10:44 07/11/20 15:49 Hydromorphone Hcl 1 Mg/Ml Syringe IVPUSH 1 mg Q4H PRN Administration pain Piperacillin Sod/Tazobactam 50 mls @ 100 mls/hr 07/11/20 04:00 07/12/20 04:33 Sod 3.375 gm/ Sodium Chloride IV Infused Q6H PHIL Infusion Vancomycin HCl 1,500 mg/ 500 mls @ 333.333 mls/hr 07/12/20 09:00 07/12/20 08:35 Sodium Chloride IV 333.33 mls/hr Q12H PHIL Administration Magnesium Oxide 400 mg 07/12/20 10:00 Magnesium Oxide 400 Mg Tablet PO 07/12/20 10:01 ONCE ONE Methadone HCl 20 mg 07/12/20 09:00 07/12/20 08:35 Methadone Hcl 1 Mg/0.1 Ml Oral.Conc PO 20 mg DAILY PHIL Administration Ondansetron HCl 4 mg 07/10/20 19:42 Ondansetron Hcl 4 Mg/2 Ml Vial IVPUSH Q8H PRN Nausea and Vomiting Oxycodone HCl 5 mg 07/10/20 19:46 07/12/20 08:35 Oxycodone Hcl Immed Release 5 Mg Tablet PO 5 mg Q4H PRN Administration Pain, Moderate (Pain Scale 4-6 Pharmacy Consult 1 each 07/11/20 03:08 Consult Rx Vancomycin Dosing MISCELLANE DAILY PRN Consult order Potassium Chloride 40 meq 07/12/20 10:00 Potassium Chloride Er 20 Meq Tab.Er.Prt PO 07/12/20 10:01 ONCE ONE Senna 17.2 mg 07/10/20 19:42 Sennosides 8.6 Mg Tablet PO BEDTIME PRN Constipation Sodium Chloride 3 ml 07/11/20 00:00 07/12/20 08:29 0.9 % Sodium Chloride Flush 3 Ml Syringe IVFLUSH Not Given QSHIFT [facility] Labs CBC & Chem 7: 07/12/20 05:55 07/12/20 05:55 Microbiology Microbiology Results: Microbiology 07/10/20 19:06 Blood - Venous Blood Culture - Preliminary Staphylococcus species 07/10/20 15:43 Blood - Venous Blood Culture - Preliminary Staphylococcus species Assessment and Plan (1) Septic arthritis of knee, left: Status: Acute (2) Cellulitis: Status: Acute (3) IV drug user: Status: Acute Assessment and Plan: 24F presented with right knee pain and swelling severe sepsis poa due to staph aureus tricuspid valve endocarditis continue vanc, zosyn follow up cultures no indication for surgery at this time follow up ID HCV patient was unaware, new diagnosis outpatient follow up opioid dependence with withdrawl addication team following
--- NOTE | 2020-07-12 11:07 | MHC.CM.PN ---
Per ROUNDS discussion, Patient is not yet medically cleared for dc (IVDA, LT IVABT needed, Methadone started today). R/T IVDA history and the need for LT IVABT & new Methadone, Patient's only real option for dc is [facility]. CM will continue to follow for dc planning.
[2020-07-12] MEDS: Magnesium Oxide 400 MG TABLET PO (11:41)
[2020-07-12] MEDS: Potassium Chloride ER 20 MEQ TAB.ER.PRT 40 MEQ PO (11:42)
--- NOTE | 2020-07-12 13:34 | MHC.RECOVRN ---
T/w spoke with pt to f/u regarding continuance of methadone. Pt would like dose increased due to mild withdrawal symptoms and would like to be connected to an OTP to continue treatment. Case discussed with MAGGIE Costa, as well as CRISTAL.
--- NOTE | 2020-07-12 14:23 | P.CNID_ITS ---
History of Present Illness Data of Consult Service Date: 07/12/20 Requesting physician: Camilo Reyes Primary Care Provider: None Physician HPI Reason for consult: endocarditis She presents with right knee pain and swelling for 3 days She has tricuspid valve endocarditis She uses IV drugs Review of Systems Review of Systems: Yes all other systems are reviewed and are negative [facility] Past Medical History Medical History Infectious tenosynovitis IV drug user No known health problems Family History Family history: reviewed and not pertinent Social History Social History Household Members: None Housing: Homeless Unable to assess alcohol history related to: Unknown Alcohol intake: never Cigarette Packs Per Day: 1 Cigarettes Per Day: 20.0 Substance Use Type: Crack/Cocaine, Heroin, IV Drugs and Marijuana service: No Current occupational status: unemployed Meds Allergies Allergy/AdvReac Type Severity Reaction Status Date / Time No Known Allergies Allergy Verified 07/10/20 13:34 [No Known Allergies*] Active Medications: Current Medications Generic Name Dose Route Start Last Admin Trade Name Freq PRN Reason Stop Dose Admin Acetaminophen 650 mg 07/10/20 19:42 07/12/20 04:20 Acetaminophen 325 Mg Tablet PO 650 mg Q6H PRN Administration Pain, Mild (Pain Scale 1-3) Clonidine HCl 0.1 mg 07/10/20 19:42 07/10/20 21:11 Clonidine Hcl 0.1 Mg Tablet PO 0.1 mg BID PRN Administration anxiety/restlessness Protocol Docusate Sodium 100 mg 07/10/20 21:00 07/12/20 08:36 Docusate Sodium 100 Mg Capsule PO Not Given BID PHIL Enoxaparin Sodium 40 mg 07/10/20 22:00 07/11/20 21:28 Enoxaparin Sodium 40 Mg/0.4 Ml Syringe SUBCUT 40 mg Q24H PHIL Administration Hydromorphone HCl 1 mg 07/11/20 10:44 07/11/20 15:49 Hydromorphone Hcl 1 Mg/Ml Syringe IVPUSH 1 mg Q4H PRN Administration pain Piperacillin Sod/Tazobactam 50 mls @ 100 mls/hr 07/11/20 04:00 07/12/20 12:19 Sod 3.375 gm/ Sodium Chloride IV Infused Q6H PHIL Infusion Vancomycin HCl 1,500 mg/ 500 mls @ 333.333 mls/hr 07/12/20 09:00 07/12/20 11:24 Sodium Chloride IV Infused Q12H PHIL Infusion Methadone HCl 20 mg 07/12/20 09:00 07/12/20 08:35 Methadone Hcl 1 Mg/0.1 Ml Oral.Conc PO 20 mg DAILY PHIL Administration Ondansetron HCl 4 mg 07/10/20 19:42 Ondansetron Hcl 4 Mg/2 Ml Vial IVPUSH Q8H PRN Nausea and Vomiting Oxycodone HCl 5 mg 07/10/20 19:46 07/12/20 08:35 Oxycodone Hcl Immed Release 5 Mg Tablet PO 5 mg Q4H PRN Administration Pain, Moderate (Pain Scale 4-6 Pharmacy Consult 1 each 07/11/20 03:08 Consult Rx Vancomycin Dosing MISCELLANE DAILY PRN Consult order Senna 17.2 mg 07/10/20 19:42 Sennosides 8.6 Mg Tablet PO BEDTIME PRN Constipation Sodium Chloride 3 ml 07/11/20 00:00 07/12/20 08:29 0.9 % Sodium Chloride Flush 3 Ml Syringe IVFLUSH Not Given QSHIFT [facility] Home Medications Medication Instructions Recorded Confirmed Last Taken Type No Known Home Meds 07/10/20 07/10/20 Unknown History Physical Exam Vital Signs: Vital Signs: Last Vital Signs Temp 98.0 F 07/12/20 10:55 Pulse 57 07/12/20 10:55 Resp 19 07/12/20 10:55 BP 113/65 07/12/20 10:55 Pulse Ox 97 07/12/20 10:55 Body Mass Index 20.5 Const: General: cooperative HENMT: Head: Yes normal to inspection Mouth: Normal oral and palatal mucosa present Eyes: General: appearance normal, both eyes and all related structures Resp: Effort & Inspection: normal respiratory effort Cardio: Rate: regular rate Rhythm: regular rhythm Heart sounds: Murmur heart sound present (2/6 PADMINI) GI: Palpation (GI): Soft to palpation and nontender Skin: General skin exam: no rashes or lesions noted Results Labs CBC & Chem 7: 07/12/20 05:55 07/13/20 04:15 Labs: Short CBC 07/12/20 Range/Units 05:55 WBC 8.0 (4.8-10.8) X10*3/uL Hgb 10.9 L (12.0-16.0) g/dl Hct 32.4 L (37-47) % Plt Count 125 L (160-400) X10*3/uL BMP 07/12/20 05:55 Sodium 135 Potassium 3.2 L Chloride 108 Carbon Dioxide 22 BUN 10 Creatinine 0.64 Calcium 7.5 L Liver Function 07/12/20 Range/Units 05:55 Total Bilirubin 0.6 (0.0-1.0) mg/dL Direct Bilirubin 0.4 (0.0-0.5) mg/dL AST 64 H (5-31) U/L ALT 106 H (0-31) U/L Alkaline Phosphatase 66 D (39-117) U/L Albumin 2.7 L D (3.5-5.0) g/dL Microbiology Microbiology Results: Microbiology 07/10/20 19:06 Blood - Venous Blood Culture - Preliminary Staphylococcus species 07/10/20 15:43 Blood - Venous Blood Culture - Preliminary Staphylococcus species Assessment and Plan (1) Endocarditis of tricuspid valve: Problem details: Likely MRSA bacteremia so will likely need 6 week IV antibiotics She has cultures pending Status: Acute Would continue Vancomycin at this time She will likely need 6 weeks IV antibiotics Check HIV test (2) IV drug user: Status: Acute
--- NOTE | 2020-07-12 14:26 | MHC.CM.PN ---
Per Manager Mechanical Maintenance (Yelitza), Plan/goal is dc to [facility] on 07/16/20 and then on Wednesday07/17/20 [facility] will transport Patient to her Methadone Intake appointment at 9AM at [facility] in [place]. CM will continue to follow.
--- NOTE | 2020-07-12 16:17 | HO.ADDICT_ITS ---
History of Present Illness Date of Service: 07/12/2020 Chief Complaint: Right knee cellulitus Reason for Consult: OUD Requesting physician: Camilo Reyes Discussed with referring provider: Yes Sources of Information: patient interviewed and chart reviewed HPI Narrative: Patient is a 24 year old female with OUD currently medically admitted with cellulitis of the knee and endocarditis. She was seen in follow up today, after initial visit yesterday when she was started on methadone 20mg to address opioid withdrawal sx. She is tolerating 20mg and not reporting any withdrawal sx. Tired today when seen and not very engaged. Has been communicating regularly with RS RN RN reporting she has been eating and appears to be in somewhat better spirits than yesterday. She is reporting that she would like to continued on MOUD--[place]ad[place] [facility] [place] Past Psychiatric History: not reviewed Medical Evaluation Reviewed: Yes Will require IV abx Review of Systems Constitutional: Reports as per HPI Diagnostics Vital Signs (24Hr): Vital Signs - 24 hr 07/11/20 19:02 07/11/20 21:18 07/11/20 23:43 Temperature 102.7 F H 99.4 F 99.3 F Pulse Rate 84 74 Respiratory Rate 16 18 Blood Pressure 128/75 97/52 L Pulse Oximetry 99 98 07/12/20 04:00 07/12/20 06:08 07/12/20 08:00 Temperature 100.1 F 98.3 F 97.8 F Pulse Rate 80 72 Respiratory Rate 18 21 H Blood Pressure 122/64 109/59 L Pulse Oximetry 95 98 07/12/20 10:55 07/12/20 15:18 Temperature 98.0 F 98.7 F Pulse Rate 57 60 Respiratory Rate 19 18 Blood Pressure 113/65 107/64 Pulse Oximetry 97 98 Body Mass Index 20.5 Labs Results: 07/12/20 05:55 07/12/20 05:55 Labs: Laboratory Results - last 48 hr 07/10/20 07/10/20 07/10/20 15:42 15:42 15:42 WBC RBC Hgb Hct MCV MCH MCHC RDW Plt Count MPV Immature Gran % (Auto) Neut % (Auto) Lymph % (Auto) [facility] % (Auto) Eos % (Auto) Baso % (Auto) Lymph # (Auto) [facility] # (Auto) Eos # (Auto) Baso # (Auto) Abs Immat Gran (auto) Absolute Neuts (auto) Absolute Nucleated RBC Nucleated RBC % (auto) ESR PT INR APTT Sodium 131 L Potassium 3.9 Chloride 95 L Carbon Dioxide 26 Anion Gap 14 BUN 10 Creatinine 0.99 Estim Creat Clear Calc 72.8 Estimated GFR > 60 Random Glucose 106 Fasting Glucose Lactic Acid Lactic Acid Fup @ 2Hr Lactic Acid Fup @ 4Hr Calcium 8.6 Magnesium Total Bilirubin 0.7 Direct Bilirubin AST 136 H ALT 207 H Alkaline Phosphatase 84 C-Reactive Protein 9.13 H Total Protein 8.0 Albumin 3.9 Vancomycin Trough COVID-19 (FUNMI) COVID-19 Clin Com Hepatitis A IgM Ab Nonreactive Hep Bs Antigen Negative Hep Bs Antibody REACTIVE Hep B Core Total Ab Nonreactive Hepatitis C Ab (EIA) Reactive H 07/10/20 07/10/20 07/10/20 19:06 19:06 19:06 WBC RBC Hgb Hct MCV MCH MCHC RDW Plt Count MPV Immature Gran % (Auto) Neut % (Auto) Lymph % (Auto) [facility] % (Auto) Eos % (Auto) Baso % (Auto) Lymph # (Auto) [facility] # (Auto) Eos # (Auto) Baso # (Auto) Abs Immat Gran (auto) Absolute Neuts (auto) Absolute Nucleated RBC Nucleated RBC % (auto) ESR 27 H PT 14.4 H INR 1.2 H APTT 33.4 Sodium Potassium Chloride Carbon Dioxide Anion Gap BUN Creatinine Estim Creat Clear Calc Estimated GFR Random Glucose Fasting Glucose Lactic Acid 3.0 H* Lactic Acid Fup @ 2Hr Lactic Acid Fup @ 4Hr Calcium Magnesium Total Bilirubin Direct Bilirubin AST ALT Alkaline Phosphatase C-Reactive Protein Total Protein Albumin Vancomycin Trough COVID-19 (FUNMI) COVID-19 Clin Com Hepatitis A IgM Ab Hep Bs Antigen Hep Bs Antibody Hep B Core Total Ab Hepatitis C Ab (EIA) 07/10/20 07/10/20 07/11/20 19:06 23:30 01:48 WBC RBC Hgb Hct MCV MCH MCHC RDW Plt Count MPV Immature Gran % (Auto) Neut % (Auto) Lymph % (Auto) [facility] % (Auto) Eos % (Auto) Baso % (Auto) Lymph # (Auto) [facility] # (Auto) Eos # (Auto) Baso # (Auto) Abs Immat Gran (auto) Absolute Neuts (auto) Absolute Nucleated RBC Nucleated RBC % (auto) ESR PT INR APTT Sodium Potassium Chloride Carbon Dioxide Anion Gap BUN Creatinine Estim Creat Clear Calc Estimated GFR Random Glucose Fasting Glucose Lactic Acid Lactic Acid Fup @ 2Hr 2.5 H* Lactic Acid Fup @ 4Hr 1.3 Calcium Magnesium Total Bilirubin Direct Bilirubin AST ALT Alkaline Phosphatase C-Reactive Protein Total Protein Albumin Vancomycin Trough COVID-19 (FUNMI) Negative COVID-19 Clin Com See Note Hepatitis A IgM Ab Hep Bs Antigen Hep Bs Antibody Hep B Core Total Ab Hepatitis C Ab (EIA) 07/11/20 07/11/20 07/11/20 05:55 05:55 05:55 WBC 9.1 RBC 3.88 L Hgb 11.4 L Hct 34.8 L MCV 89.7 MCH 29.4 MCHC 32.8 RDW 13.8 Plt Count 124 L MPV 9.9 Immature Gran % (Auto) 0.5 H Neut % (Auto) 79.8 H Lymph % (Auto) 12.[address] [facility] % (Auto) 7.1 Eos % (Auto) 0.2 Baso % (Auto) 0.3 Lymph # (Auto) 1.[address] [facility] # (Auto) 0.7 Eos # (Auto) 0.0 Baso # (Auto) 0.0 Abs Immat Gran (auto) 0.05 H Absolute Neuts (auto) 7.3 Absolute Nucleated RBC 0.000 Nucleated RBC % (auto) 0.0 ESR PT 16.0 H INR 1.3 H APTT Sodium 137 Potassium 3.0 L D Chloride 107 Carbon Dioxide 23 Anion Gap 10 L BUN 8 L Creatinine 0.67 Estim Creat Clear Calc 113.4 Estimated GFR > 60 Random Glucose 102 Fasting Glucose Lactic Acid Lactic Acid Fup @ 2Hr Lactic Acid Fup @ 4Hr Calcium 7.4 L D Magnesium Total Bilirubin Direct Bilirubin AST ALT Alkaline Phosphatase C-Reactive Protein Total Protein Albumin Vancomycin Trough COVID-19 (FUNMI) COVID-19 Clin Com Hepatitis A IgM Ab Hep Bs Antigen Hep Bs Antibody Hep B Core Total Ab Hepatitis C Ab (EIA) 07/11/20 07/12/20 07/12/20 07:09 05:55 05:55 WBC 8.0 RBC 3.68 L Hgb 10.9 L Hct 32.4 L MCV 88.0 MCH 29.6 MCHC 33.6 RDW 13.5 Plt Count 125 L MPV 10.0 Immature Gran % (Auto) 0.5 H Neut % (Auto) 75.3 H Lymph % (Auto) 16.[address] [facility] % (Auto) 6.0 Eos % (Auto) 1.6 Baso % (Auto) 0.4 Lymph # (Auto) 1.3 [facility] # (Auto) 0.5 Eos # (Auto) 0.1 Baso # (Auto) 0.0 Abs Immat Gran (auto) 0.04 H Absolute Neuts (auto) 6.0 Absolute Nucleated RBC 0.000 Nucleated RBC % (auto) 0.0 ESR PT INR APTT Sodium Potassium Chloride Carbon Dioxide Anion Gap BUN Creatinine Estim Creat Clear Calc Estimated GFR Random Glucose Fasting Glucose Lactic Acid 0.9 Lactic Acid Fup @ 2Hr Lactic Acid Fup @ 4Hr Calcium Magnesium Total Bilirubin Direct Bilirubin AST ALT Alkaline Phosphatase C-Reactive Protein Total Protein Albumin Vancomycin Trough < 3.0 L COVID-19 (FUNMI) COVID-19 Clin Com Hepatitis A IgM Ab Hep Bs Antigen Hep Bs Antibody Hep B Core Total Ab Hepatitis C Ab (EIA) 07/12/20 05:55 WBC RBC Hgb Hct MCV MCH MCHC RDW Plt Count MPV Immature Gran % (Auto) Neut % (Auto) Lymph % (Auto) [facility] % (Auto) Eos % (Auto) Baso % (Auto) Lymph # (Auto) [facility] # (Auto) Eos # (Auto) Baso # (Auto) Abs Immat Gran (auto) Absolute Neuts (auto) Absolute Nucleated RBC Nucleated RBC % (auto) ESR PT INR APTT Sodium 135 Potassium 3.2 L Chloride 108 Carbon Dioxide 22 Anion Gap 8 L BUN 10 Creatinine 0.64 Estim Creat Clear Calc 118.7 Estimated GFR > 60 Random Glucose Fasting Glucose 100 H Lactic Acid Lactic Acid Fup @ 2Hr Lactic Acid Fup @ 4Hr Calcium 7.5 L Magnesium 1.8 Total Bilirubin 0.6 Direct Bilirubin 0.4 AST 64 H ALT 106 H Alkaline Phosphatase 66 D C-Reactive Protein Total Protein 5.6 L D Albumin 2.7 L D Vancomycin Trough COVID-19 (FUNMI) COVID-19 Clin Com Hepatitis A IgM Ab Hep Bs Antigen Hep Bs Antibody Hep B Core Total Ab Hepatitis C Ab (EIA) Imaging Radiology Impressions: ITS Impressions Venous Duplex 07/10/20 17:54 IMPRESSION: No DVT demonstrated in the right lower extremity. Knee X-Ray 07/10/20 18:21 IMPRESSION: Swelling in prepatellar region. No bone or joint abnormality. Extremity Ultrasound 07/10/20 19:57 IMPRESSION: A knee joint effusion is present Mental Status Exam Mental Status Exam Patient Appearance: Appropriate Patient Orientation: Person, Place, Time and Situation Level of Consciousness: Drowsy Patient Behavior: Appropriate Mood Description: Calm Affect Description: Calm Patient Cognition Impaired: No Speech Pattern: Clear Delusions: Not Present Thought Process: Intact Thought Content: positive for Intact Judgement: Fair Medications Medications Current Medications Generic Name Dose Route Start Last Admin Trade Name Freq PRN Reason Stop Dose Admin Acetaminophen 650 mg 07/10/20 19:42 07/12/20 04:20 Acetaminophen 325 Mg Tablet PO 650 mg Q6H PRN Administration Pain, Mild (Pain Scale 1-3) Clonidine HCl 0.1 mg 07/10/20 19:42 07/10/20 21:11 Clonidine Hcl 0.1 Mg Tablet PO 0.1 mg BID PRN Administration anxiety/restlessness Protocol Docusate Sodium 100 mg 07/10/20 21:00 07/12/20 08:36 Docusate Sodium 100 Mg Capsule PO Not Given BID PHIL Enoxaparin Sodium 40 mg 07/10/20 22:00 07/11/20 21:28 Enoxaparin Sodium 40 Mg/0.4 Ml Syringe SUBCUT 40 mg Q24H PHIL Administration Hydromorphone HCl 1 mg 07/11/20 10:44 07/11/20 15:49 Hydromorphone Hcl 1 Mg/Ml Syringe IVPUSH 1 mg Q4H PRN Administration pain Piperacillin Sod/Tazobactam 50 mls @ 100 mls/hr 07/11/20 04:00 07/12/20 12:19 Sod 3.375 gm/ Sodium Chloride IV Infused Q6H PHIL Infusion Vancomycin HCl 1,500 mg/ 500 mls @ 333.333 mls/hr 07/12/20 09:00 07/12/20 11:24 Sodium Chloride IV Infused Q12H PHIL Infusion Methadone HCl 20 mg 07/12/20 09:00 07/12/20 08:35 Methadone Hcl 1 Mg/0.1 Ml Oral.Conc PO 20 mg DAILY PHIL Administration Ondansetron HCl 4 mg 07/10/20 19:42 Ondansetron Hcl 4 Mg/2 Ml Vial IVPUSH Q8H PRN Nausea and Vomiting Oxycodone HCl 5 mg 07/10/20 19:46 07/12/20 08:35 Oxycodone Hcl Immed Release 5 Mg Tablet PO 5 mg Q4H PRN Administration Pain, Moderate (Pain Scale 4-6 Pharmacy Consult 1 each 07/11/20 03:08 Consult Rx Vancomycin Dosing MISCELLANE DAILY PRN Consult order Senna 17.2 mg 07/10/20 19:42 Sennosides 8.6 Mg Tablet PO BEDTIME PRN Constipation Sodium Chloride 3 ml 07/11/20 00:00 07/12/20 08:29 0.9 % Sodium Chloride Flush 3 Ml Syringe IVFLUSH Not Given QSHIFT PHIL Allergies Allergies Allergy/AdvReac Type Severity Reaction Status Date / Time No Known Allergies Allergy Verified 07/10/20 13:34 [No Known Allergies*] Assessment & Plan Assessment & Plan (1) Opioid use disorder: Status: Acute Code(s): F11.99 - Opioid use, unspecified with unspecified opioid-induced disorder Recommendations: * continue methadone 20mg QD * if patient is reporting withdrawal sx, may increase dose by 5mg QD for a total of 25mg QD * continue with pain medications as appropriate * plan to discharge to SNF for IV abx next week. If possible, Wednesday d/c would allow for smooth transition of care to [facility] as CM and RS RN have been in contact with both facilities * will follow up on Wednesday (please [place] this health science writer over the wkend if any concerns related to methadone dosing) Greater than 50% of the session was spent on counseling and/or coordination of care [facility] Past Medical History Medical History Infectious tenosynovitis IV drug user No known health problems Family History Family history: reviewed and not pertinent Social History Social History Household Members: None Housing: Homeless Unable to assess alcohol history related to: Unknown Alcohol intake: never Smoking Status: Current every day smoker Tobacco Type: Cigarette Packs Per Day: 1 Cigarettes Per Day: 20.0 Smoked in Last 30 Days: Yes Use of substances other than those prescribed or required for medical reasons: Yes Substance Use Type: Crack/Cocaine, Heroin, IV Drugs and Marijuana Substance Use Frequency: Daily Last Used Substance: Days (ago) Currently Displaying Signs/Symptoms of Drug Intoxication Withdrawal: No Advance Directives: No Advance Directives Information Provided: Yes Do you have thoughts of harming others: None Do you have a plan to hurt others: No Plan Recently lost weight without trying: Unsure Nutrition Risks: No Nutritional Risk Patient : No : No Poor oral hygiene: No service: No Current occupational status: unemployed
[2020-07-12] MEDS: 0.9 % Sodium Chloride Flush 3 ML SYRINGE IVFLUSH (20:50)
[2020-07-13 03:58] VITALS: BP 113/67; PULSE 65; RESP 18; TEMP 36.9; O2SAT 95
[2020-07-13] MEDS: Piperacillin Sodium/Tazobactam 3.375 GM in 0.9 % Sodium Chloride 50 ML IV ×2 (04:00→09:00)
[2020-07-13 05:29] LABS: Anion Gap 10 (12-20); Blood Urea Nitrogen 8 mg/dL (9-16); Calcium 7.6 mg/dL (8.4-10.2); Carbon Dioxide 23 mmol/L (22-29); Chloride 108 mmol/L (96-108); Creatinine Clr Calc Pharmacy 110.2; Estimated Glomerular Filt Rate > 60; Glucose Fasting 97 mg/dL (60-99); Potassium 3.9 mmol/L (3.3-5.1); Sodium 137 mmol/L (135-145)
[2020-07-13 07:25] VITALS: BP 113/74; PULSE 64; RESP 16; TEMP 36.2; O2SAT 97
[2020-07-13] MEDS: vancomycin HCL 1,500 MG in 0.9 % Sodium Chloride 500 ML 333.33 MG IV (08:54)
[2020-07-13] MEDS: 0.9 % Sodium Chloride Flush 3 ML SYRINGE IVFLUSH ×2 (09:02→15:45)
--- NOTE | 2020-07-13 09:32 | HO.PM.IMPN ---
Subjective Subjective Date of Service: 07/13/20 Interval History: knee pain resolved, still feeling withdrawl Cardiovascular Cardiovascular: Reports no additional cardiovascular complaints Respiratory Respiratory: Reports no additional respiratory complaints Physical Exam Vital Signs: Vital Signs: Last Vital Signs Temp 97.1 F 07/13/20 07:25 Pulse 64 07/13/20 07:25 Resp 16 07/13/20 07:25 BP 113/74 07/13/20 07:25 Pulse Ox 97 07/13/20 07:25 Body Mass Index 20.5 General: AO X 3, no acute distress Resp: CTA bilateral CVS: S1,S2,RRR GI: soft, non tender, non distended Neuro: motor grossly intact Psych: appropriate affect Objective Data Current Medications Generic Name Dose Route Start Last Admin Trade Name Freq PRN Reason Stop Dose Admin Acetaminophen 650 mg 07/10/20 19:42 07/12/20 04:20 Acetaminophen 325 Mg Tablet PO 650 mg Q6H PRN Administration Pain, Mild (Pain Scale 1-3) Clonidine HCl 0.1 mg 07/10/20 19:42 07/10/20 21:11 Clonidine Hcl 0.1 Mg Tablet PO 0.1 mg BID PRN Administration anxiety/restlessness Protocol Docusate Sodium 100 mg 07/10/20 21:00 07/13/20 09:02 Docusate Sodium 100 Mg Capsule PO Not Given BID PHIL Enoxaparin Sodium 40 mg 07/10/20 22:00 07/12/20 23:06 Enoxaparin Sodium 40 Mg/0.4 Ml Syringe SUBCUT Not Given Q24H PHIL Hydromorphone HCl 1 mg 07/11/20 10:44 07/11/20 15:49 Hydromorphone Hcl 1 Mg/Ml Syringe IVPUSH 1 mg Q4H PRN Administration pain Piperacillin Sod/Tazobactam 50 mls @ 100 mls/hr 07/11/20 04:00 07/13/20 09:00 Sod 3.375 gm/ Sodium Chloride IV 100 mls/hr Q6H PHIL Administration Vancomycin HCl 1,500 mg/ 500 mls @ 333.333 mls/hr 07/12/20 09:00 07/13/20 08:54 Sodium Chloride IV 333.33 mls/hr Q12H PHIL Administration Methadone HCl 20 mg 07/12/20 09:00 07/13/20 08:54 Methadone Hcl 1 Mg/0.1 Ml Oral.Conc PO 20 mg DAILY PHIL Administration Ondansetron HCl 4 mg 07/10/20 19:42 Ondansetron Hcl 4 Mg/2 Ml Vial IVPUSH Q8H PRN Nausea and Vomiting Oxycodone HCl 5 mg 07/10/20 19:46 07/12/20 16:28 Oxycodone Hcl Immed Release 5 Mg Tablet PO 5 mg Q4H PRN Administration Pain, Moderate (Pain Scale 4-6 Pharmacy Consult 1 each 07/11/20 03:08 Consult Rx Vancomycin Dosing MISCELLANE DAILY PRN Consult order Senna 17.2 mg 07/10/20 19:42 Sennosides 8.6 Mg Tablet PO BEDTIME PRN Constipation Sodium Chloride 3 ml 07/11/20 00:00 07/13/20 09:02 0.9 % Sodium Chloride Flush 3 Ml Syringe IVFLUSH 3 ml QSHIFT PHIL Administration Labs CBC & Chem 7: 07/12/20 05:55 07/13/20 04:15 Microbiology Microbiology Results: Microbiology 07/10/20 19:06 Blood - Venous Blood Culture - Final Staphylococcus aureus 07/10/20 15:43 Blood - Venous Blood Culture - Final Staphylococcus aureus 07/12/20 05:55 Blood - Venous Blood Culture - Preliminary 07/12/20 06:05 Blood - Venous Blood Culture - Preliminary Assessment and Plan (1) Septic arthritis of knee, left: Status: Acute (2) Cellulitis: Status: Acute (3) IV drug user: Status: Acute Assessment and Plan: 24F presented with right knee pain and swelling severe sepsis poa due to 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
[2020-07-13 10:59] VITALS: BP 119/69; PULSE 48; RESP 16; TEMP 36.8; O2SAT 99
[2020-07-13] MEDS: Nafcillin Sodium 2 GM in 0.9 % Sodium Chloride 100 ML IV ×3 (11:11→17:37)
[2020-07-13] MEDS: oxyCODONE HCl Immed Release 5 MG TABLET PO (13:58)
[2020-07-13 14:59] VITALS: BP 107/62; PULSE 60; RESP 18; TEMP 36.6; O2SAT 98
[2020-07-13] MEDS: cloNIDine HCL 0.1 MG TABLET PO (18:10)
[2020-07-13 18:16] VITALS: RESP 18
[2020-07-13] MEDS: HYDROmorphone HCl 1 MG/ML SYRINGE IVPUSH (18:16)
[2020-07-13 19:27] VITALS: BP 99/64; PULSE 53; RESP 18; TEMP 36.6; O2SAT 98
--- NOTE | 2020-07-13 21:00 | PM.EVENT ---
Event Note Date of Service: 07/13/20 Event Note: Against medical advise note: RN mentioned that the patient does not want stay in the hospital and wants to leave. RN right explained to the patient about the recent 1 which not only include worsening current condition may even lead to , patient verbalized to the RN that she understood and she still wants to leave AMA. RN texted me, by the time I went to the patient patient did not wait and left the hospital. I tried to call the patient on the cellphone, not reachable. Notified family (next of Kin) to try to convince her to come to the hospital for continued treatment.
--- NOTE | 2020-07-14 06:53 | PM.DS ---
DS: Providers Provider Date of Service: 07/14/20 Date of admission: 07/10/20 19:42 Primary care physician: None Physician Consults: 07/10/20 19:42 Addiction Medicine Routine Consulting Provider: Belinda Mayfield Reason for consultation: opiate abuse Consult to Infectious Diseases Routine Consulting Provider: Adela Parr Reason for consultation: knee cellulitis Consult to Orthopedics Routine Consulting Provider: Isidro Nichols Reason for consultation: knee infection 07/11/20 03:10 Consult to Infectious Diseases Routine Consulting Provider: Adela Parr Reason for consultation: Bacteremia; hx IVDA DS: Diagnosis Discharge Diagnosis (1) Septic arthritis of knee, left: Status: Deleted (2) Cellulitis: Status: Deleted (3) IV drug user: Status: Acute (4) Endocarditis of tricuspid valve: Status: Acute Problem details: Likely MRSA bacteremia so will likely need 6 week IV antibiotics She has cultures pending (5) Opioid use disorder: Status: Acute DS: Medications Discharge Medications Home Medications: Home Medications Medication Instructions Recorded Confirmed No Known Home Meds 07/10/20 07/10/20 DS: Summary Hospital Course Hospital Course: Patient was admitted for severe sepsis secondary to tricuspid valve endocarditis due to MSSA bacteremia. She was treated initially with vancomycin Zosyn and when sensitivities came back transitioned to nafcillin. Echocardiogram did reveal a 1 cm tricuspid vegetation. Plan was to continue the antibiotics for 6 weeks after clearing blood cultures. Most recent blood cultures from 07/12 were still positive. Patient did not want to stay in the hospital despite being treated adequately for her opiate withdrawal. She left against medical advice. She was fully aware of the risk of doing so including . Time Spent with Patient Time attestation: Total time spent providing and/or coordinating discharge services: Discharge coordination time: Greater than 30 minutes Quality: Stroke Does the patient have a stroke diagnosis?: No Physical Exam Vital Signs: Vital Signs: Last Vital Signs Temp 97.8 F 07/13/20 19:27 Pulse 53 07/13/20 19:27 Resp 18 07/13/20 19:27 BP 99/64 07/13/20 19:27 Pulse Ox 98 07/13/20 19:27 Body Mass Index 20.5 General: AO X 3, no acute distress Resp: CTA bilateral CVS: S1,S2,RRR GI: soft, non tender, non distended Neuro: motor grossly intact Psych: appropriate affect DS: Data Data Completed and Pending Labs on day of discharge: Preliminary micro results at discharge 07/12/20 05:55 Blood Culture - Preliminary Blood - Venous 07/12/20 06:05 Blood Culture - Preliminary Blood - Venous Discharge Plan Discharge Patient Disposition: Left Against Medical Advice Discharge Diagnosis: Endocarditis Referrals: Physician,None [Primary Care Provider] - 1 Week Discharge Medications: No Action No Known Home Meds RF: 0 Discharge Orders: Discharge Order (Routine); Ordered 07/13/20 Ordered By: Silas Gray Care Plan Goals: . Health Concerns: endocarditis Plan of Treatment: abx Assessment: see above Discharge Date/Time: 07/13/20 21:15
[2020-07-15 03:37] LABS: HIV AB/AG Nonreactive (Nonreactive); HIV Num 1 0.07 S/CO (0.00-0.99)
== END 2020-07-13 21:15 | disposition left against medical advice (07) | DRG 720 ==
LOC: HO.ED 20:30 → HO.EDOVER 20:47 → HO.IMC 21:10
PROVIDERS: Physician Assistant; Admitting Provider Hospitalist; Emergency Provider Internal Medicine; Visit Provider Internal Medicine
DX: A41.01 Sepsis due to Methicillin susceptible Staphylococcus aureus (principal); M00.9 Pyogenic arthritis, unspecified; R65.20 Severe sepsis without septic shock; F17.210 Nicotine dependence, cigarettes, uncomplicated; I07.9 Rheumatic tricuspid valve disease, unspecified; B19.20 Unspecified viral hepatitis C without hepatic coma; F11.23 Opioid dependence with withdrawal; L03.115 Cellulitis of right lower limb; Z71.6 Tobacco abuse counseling; Z59.0 Homelessness; Z20.822 Contact with and (suspected) exposure to COVID-19
CPT/HCPCS: 36415; 73564; 76882; 80048; 80053; 80076; 80202; 83605; 83735; 85025; 85610; 85652; 85730; 86140; 86704; 86706; 86709; 86803; 87040; 87077; 87147; 87186; 87205; 87340; 87389; 87635; 93306; 93971; 96365; 96368; 99285; J1170; J1650; J2543; J3370